=== PATIENT | male | born 1955 | race Caucasian/White ===

== ENCOUNTER → 2024-04-05 07:27 | Outpatient (REF) | payer MEDICARE, SELFPAY | LOC: MRI 3T 07:27 | PROVIDERS: ATTENDING PHYSICIAN Specialist; FAMILY PHYSICIAN Family Medicine | DX: R97.20 Elevated prostate specific antigen [PSA] (principal) | CPT/HCPCS: 72197; A9575 ==

== ENCOUNTER → 2024-04-17 06:17 | Day surgery (SDC) | payer MEDICARE, SELFPAY | LOC: GI 06:17 | PROVIDERS: ATTENDING PHYSICIAN Specialist; FAMILY PHYSICIAN Family Medicine | DX: K51.90 Ulcerative colitis, unspecified, without complications (principal) | CPT/HCPCS: 45380; 88305 ==

== ENCOUNTER → 2024-05-07 08:11 | Outpatient (REF) | payer MEDICARE, SELFPAY ==
[2024-05-07 09:36] LABS: Hematocrit 39.6 % (39.0-52.0); Hemoglobin 13.4 g/dL (13.0-18.0); Mean Corp Hgb Conc. 33.8 g/dL (33.0-37.0); Mean Corpuscular Hgb 32.9 pg (27.0-31.0); Mean Corpuscular Volume 97.3 fL (80.0-94.0); Mean Platelet Volume 10.3 fL (7.4-10.4); Platelet Count 252 10^3/uL (130-400); Red Blood Cell Count 4.07 10^6/uL (4.70-6.10); Red Cell Dist. Width 12.5 % (11.5-14.5); White Blood Cell Count 9.1 10^3/uL (4.8-10.8)
== END ==
LOC: SDSPAT 08:11
PROVIDERS: ATTENDING PHYSICIAN Specialist; FAMILY PHYSICIAN Family Medicine
DX: Z01.818 Encounter for other preprocedural examination (principal)
CPT/HCPCS: 36415; 85027; 93005

== ENCOUNTER 2024-05-08 06:26 | Day surgery (SDC) | payer MEDICARE, SELFPAY ==
[2024-05-07 08:55] VITALS: BMI 24.4
[2024-05-08 08:46] VITALS: BP 139/88
[2024-05-08 08:52] VITALS: BMI 24.4
[2024-05-08] MEDS: NEOMYCIN ENEMA 1 BOTTLE RECTAL (09:09)
[2024-05-08] MEDS: TYLENOL 1000 MG PO (09:36)
[2024-05-08 11:02] VITALS: BP 92/57
[2024-05-08 11:15] VITALS: BP 117/84
[2024-05-08 11:30] VITALS: BP 135/85
[2024-05-08 11:45] VITALS: BP 130/84
== END 2024-05-08 12:00 | disposition home or self-care (01) ==
LOC: SDS 06:26
PROVIDERS: ATTENDING PHYSICIAN Specialist; FAMILY PHYSICIAN Family Medicine
DX: R97.20 Elevated prostate specific antigen [PSA] (principal); Z80.42 Family history of malignant neoplasm of prostate
CPT/HCPCS: 55700; 76998; 88305; 88344; J1580

== ENCOUNTER → 2025-05-07 06:55 | Outpatient (REF) | payer MEDICARE, SELFPAY | LOC: MRI 06:55 | PROVIDERS: ATTENDING PHYSICIAN Specialist; FAMILY PHYSICIAN Family Medicine | DX: K51.90 Ulcerative colitis, unspecified, without complications (principal) | CPT/HCPCS: 72197; 74183; A9575 ==